=== PATIENT | male | born 1965 | race African-American/Black ===

== ENCOUNTER 2017-05-07 22:55 | Emergency (ER) ==
[2017-05-07 22:55] VITALS: BMI 25.7
--- NOTE | 2017-05-07 23:05 | ED.PDOC ---
General ED Provider: Dr. AL BARRERA Chief Complaint: Fall Stated Complaint: patient fell and ijured head and rt hand. He is brought by Police. Time Seen by Physician: 23:04 Nursing and Triage Documentation Reviewed and Agree: Yes Reviewed sepsis parameters & appropriate labs ordered?: No Sepsis Protocol: For patient's 13 years and over: Temp is 96.8 and below OR 101 and greater Pulse >90 BPM Resp >20/minute Acutely Altered Mental Status Are patient's symptoms suggestive of a new infection, such as: -Pneumonia -Skin, Soft Tissue -Endocarditis -UTI -Bone, Joint Infection -Implantable Device -Acute Abdominal Infection -Wound Infection -Meningitis -Blood Stream Catheter Infection -Unknown Past Medical History - Past Medical History Endocrine: Reports: Unknown Cardiovascular: Reports: Unknown Respiratory: Reports: Unknown Hematological: Reports: Unknown Gastrointestinal: Reports: Unknown Genitourinary: Reports: Unknown Neuro/Psych: Reports: Unknown Musculoskeletal: Reports: Unknown Cancer: Reports: Unknown - Surgical History General Surgical History: Reports: Unknown - Family History Family History: Reports: Unknown - Social History Smoking Status: Current every day smoker, Heavy tobacco smoker Hx Substance Use: Yes (COCAINE IN PAST) Alcohol Screening: Occasionally Course - Course Orders, Labs, Meds: Orders Category Date Time Status CT HEAD W/O CONTRAST Stat RADS 05/07/17 22:57 Ordered HAND, RIGHT 3 VIEWS Stat RADS 05/07/17 22:57 Ordered Departure - Departure Allergies/Adverse Reactions: Allergies No Known Drug Intolerances Adverse Reaction (Verified 09/04/15 00:29) Home Medications: Ambulatory Orders 1 [No Reported Medications] 09/04/15
[2017-05-07 23:07] VITALS: BP 131/84; TEMP 97.4
--- NOTE | 2017-05-07 23:08 | ED.PDOC ---
General ED Provider: Dr. AL BARRERA Chief Complaint: Fall Stated Complaint: Patient is brought by Police, he fell and injured the head, and right hand. Time Seen by Physician: 23:06 Nursing and Triage Documentation Reviewed and Agree: Yes Reviewed sepsis parameters & appropriate labs ordered?: No System Inflammatory Response Syndrome: Not Applicable Sepsis Protocol: For patient's 13 years and over: Temp is 96.8 and below OR 101 and greater Pulse >90 BPM Resp >20/minute Acutely Altered Mental Status Are patient's symptoms suggestive of a new infection, such as: -Pneumonia -Skin, Soft Tissue -Endocarditis -UTI -Bone, Joint Infection -Implantable Device -Acute Abdominal Infection -Wound Infection -Meningitis -Blood Stream Catheter Infection -Unknown Trauma/Injury Complaint Exam - Head Injury Complaint/Exam Location of Pain: Reports: Right, Scalp Mechanism of Injury: Reports: Trauma Symptoms Are: Still present Initial Severity: Mild Current Severity: Mild Character: Reports: Dull Aggravating: Reports: None Alleviating: Reports: None Associated Signs and Symptoms: Denies: Confusion, Memory loss, Seizure, Epistaxis, Dental malocclusion, Neck pain, Nausea, Vomiting Loss of Consciousness: None SDH Risk Factors: Present: None Cervical Spine Injury Risk Factors: Present: None Related Surgical History: Reports: None Focal Weakness: Present: None Focal Sensory Loss: Present: None Gait: Normal Gag Reflex Present: Yes Finger to Nose: Normal Babinski Sign: Negative Right, Negative Left Differential Diagnoses: Trauma Review of Systems - Review Of Systems Constitutional: Reports: No symptoms Eyes: Reports: No symptoms Ears, Nose, Mouth, Throat: Reports: No symptoms Respiratory: Reports: No symptoms Cardiac: Reports: No symptoms GI: Reports: No symptoms : Reports: No symptoms Musculoskeletal: Reports: Joint pain Skin: Reports: No symptoms Neurological: Reports: Headache Endocrine: Reports: No symptoms Hematologic/Lymphatic: Reports: No symptoms All Other Systems: Reviewed and Negative Past Medical History - Past Medical History Previously Healthy: Yes Endocrine: Reports: Unknown Cardiovascular: Reports: Unknown Respiratory: Reports: Unknown Hematological: Reports: Unknown Gastrointestinal: Reports: Unknown Genitourinary: Reports: Unknown Neuro/Psych: Reports: Unknown Musculoskeletal: Reports: Unknown Cancer: Reports: Unknown - Surgical History General Surgical History: Reports: Unknown - Family History Family History: Reports: Unknown - Social History Smoking Status: Current every day smoker, Heavy tobacco smoker Smoking Cessation Counseling Time: > 10 min Hx Substance Use: Yes (COCAINE IN PAST) Alcohol Screening: Occasionally Physical Exam - Physical Exam Appearance: Ill-appearing Eyes: EOMI, Conjunctiva clear ENT: Ears normal, Nose normal, Oropharynx normal Respiratory: Airway patent, Breath sounds clear, Breath sounds equal, Respirations nonlabored Cardiovascular: RRR, Pulses normal, No rub, No murmur GI/: Soft, Nontender, No masses, Bowel sounds normal, No Organomegaly Musculoskeletal: Normal strength, ROM intact, No edema, No calf tenderness Skin: Warm, Dry, Normal color Neurological: Sensation intact (rt side scalp, palpable mass, non tender, soft. 3 cm), Motor intact, Reflexes intact, Cranial nerves intact, Alert, Oriented Psychiatric: Affect appropriate, Mood appropriate Interpretation - Radiology Interpretation Radiology Interpretation By: Radiologist Radiology Results: Positive (scalp hematoma) Exam Interpreted: CT Scan Critical Care Note - Critical Care Note Total Time (mins): 15 Course - Course Orders, Labs, Meds: Orders Category Date Time Status CT HEAD W/O CONTRAST Stat RADS 05/07/17 22:57 Completed HAND, RIGHT 3 VIEWS Stat RADS 05/07/17 22:57 Completed Vital Signs: Temp Pulse Resp BP Pulse Ox 05/07/17 22:56 97.4 F L 84 18 131/84 98 Departure - Departure Time of Disposition: 23:58 Disposition: HOME SELF-CARE Discharge Problem: Scalp hematoma Qualifiers: Encounter type: initial encounter Qualified Code(s): S00.03XA - Contusion of scalp, initial encounter Instructions: Hematoma (ED) Condition: Stable Pt referred to PMD for follow-up: No IPMP verified?: No Additional Instructions: Patient is stable, and released back to Police. Allergies/Adverse Reactions: Allergies No Known Drug Intolerances Adverse Reaction (Verified 05/07/17 23:07) Home Medications: Ambulatory Orders 1 [No Reported Medications] 09/04/15 Disposition Discussed With: Patient
--- NOTE | 2017-05-07 23:35 | CT ---
EXAM: CT scan brain without contrast HISTORY: Fall COMPARISON: CT scan brain 09/04/2015 FINDINGS: Contiguous axial images obtained from the skull base to the convexities without contrast u tilizing 5-mm collimation. The ventricles and CSF spaces are prominent compared with age appropriate atrophy. There is mild periventricular hypodensity noted compatible with chronic microvascular dise ase. There is a moderate sized right frontal scalp hematoma without acute findings.. Visualized par anasal sinuses and mastoid air cells are clear calvarium is intact. Moderately large right frontal s calp hematoma. IMPRESSION: Moderately large right frontal scalp hematoma. No acute findings.
--- NOTE | 2017-05-07 23:40 | DI ---
EXAM: Three views of the right hand. HISTORY: Fall. FINDINGS: Comparison made with three-view right hand of 09/04/2015. There is a nondisplaced fracture through the head of the right fifth metacarpal, age indeterminate. There is an old healed fracture of the distal right fifth metacarpal. The joint spaces are maintained. No soft tissue abnormality. Impression: Nondisplaced fracture through the head of the right fifth metacarpal, age indeterminate. Old healed fracture of the distal right fifth metacarpal.
== END 2017-05-08 00:05 | disposition home or self-care (01) ==
LOC: ED 22:55
DX: S00.03XA Contusion of scalp, initial encounter (principal); S69.91XA Unspecified injury of right wrist, hand and finger(s), initial encounter; W19.XXXA Unspecified fall, initial encounter; F17.210 Nicotine dependence, cigarettes, uncomplicated
CPT/HCPCS: 99282

== ENCOUNTER 2017-09-14 12:52 | Emergency (ER) | payer OTHER ==
[2017-09-14 12:57] VITALS: BP 144/88; TEMP 98.5; BMI 26.9
[2017-09-14] MEDS ORDERED: TORADOL IM STA (13:16)
--- NOTE | 2017-09-14 13:23 | ED.PDOC ---
General ED Provider: Dr. YAAHIRA PAUL Chief Complaint: Fall Stated Complaint: fall back and neck pain Time Seen by Physician: 13:00 Mode of Arrival: Walk-In Information Source: Patient Exam Limitations: No limitations Nursing and Triage Documentation Reviewed and Agree: Yes Reviewed sepsis parameters & appropriate labs ordered?: Yes (police present at all times ) System Inflammatory Response Syndrome: Not Applicable Sepsis Protocol: For patient's 13 years and over: Temp is 96.8 and below OR 101 and greater Pulse >90 BPM Resp >20/minute Acutely Altered Mental Status Are patient's symptoms suggestive of a new infection, such as: -Pneumonia -Skin, Soft Tissue -Endocarditis -UTI -Bone, Joint Infection -Implantable Device -Acute Abdominal Infection -Wound Infection -Meningitis -Blood Stream Catheter Infection -Unknown Musculoskeletal Complaint Exam - Neck Pain Complaint/Exam Mechanism of Injury: Reports: Trauma Onset/Duration: fall today, low back pain withe xtension to left posterior leg Symptoms Are: Still present Timing: Constant Initial Severity: Moderate Current Severity: Mild Location: Reports: Discrete Aggravating: Reports: Position, Movement Alleviating: Reports: Position Associated Signs and Symptoms: Denies: Swelling, Redness, Bruising, Fever, Nuchal rigidity, Weakness, Headache, Paresthesia Meningitis Risk Factors: Reports: None Cervical Spine Injury Risk Factors: Denies: Post-Midline CS tender, Evidence of intoxication, Altered LOC, Focal neuro deficit, Distracting injuries Related Surgical History: Reports: None Carotid Bruit Present: No Pain on Passive Flexion: No Positive Kernig's Sign: No ROM Limited In: Present: Side bending Tenderness: Present: Paraspinal Focal Weakness: Present: None Focal Sensory Loss: Reports: None Nexus Low Risk Criteria: No evidence of intoxicat., No Altered LOC, No focal neuro deficit, No distracting injuries Differential Diagnoses: Arthritis, Sprain, Strain Review of Systems - Review Of Systems Constitutional: Reports: No symptoms Eyes: Reports: No symptoms Ears, Nose, Mouth, Throat: Reports: No symptoms Respiratory: Reports: No symptoms Cardiac: Reports: No symptoms GI: Reports: No symptoms : Reports: No symptoms Musculoskeletal: Reports: Back pain (t and l spine) Skin: Reports: No symptoms Neurological: Reports: No symptoms Endocrine: Reports: No symptoms Hematologic/Lymphatic: Reports: No symptoms All Other Systems: Reviewed and Negative Past Medical History - Past Medical History Previously Healthy: Yes Endocrine: Reports: Unknown Cardiovascular: Reports: Unknown Respiratory: Reports: Unknown Hematological: Reports: Unknown Gastrointestinal: Reports: Unknown Genitourinary: Reports: Unknown Neuro/Psych: Reports: Unknown Musculoskeletal: Reports: Unknown Cancer: Reports: Unknown - Surgical History General Surgical History: Reports: Unknown - Family History Family History: Reports: Unknown - Social History Smoking Status: Current every day smoker, Heavy tobacco smoker Hx Substance Use: Yes (COCAINE IN PAST) Alcohol Screening: Occasionally Physical Exam - Physical Exam Appearance: Well-appearing, No pain distress, Well-nourished Eyes: ALEXIA, EOMI, Conjunctiva clear ENT: Ears normal, Nose normal, Oropharynx normal Respiratory: Airway patent, Breath sounds clear, Breath sounds equal, Respirations nonlabored Cardiovascular: RRR, Pulses normal, No rub, No murmur GI/: Soft, Nontender, No masses, Bowel sounds normal, No Organomegaly Musculoskeletal: Normal strength, ROM intact, No edema, No calf tenderness Skin: Warm, Dry, Normal color Neurological: Sensation intact, Motor intact, Reflexes intact, Cranial nerves intact, Alert, Oriented Psychiatric: Affect appropriate, Mood appropriate Interpretation - Radiology Interpretation Radiology Interpretation By: Radiologist Radiology Results: No acute changes Critical Care Note - Critical Care Note Total Time (mins): 0 Course - Course Orders, Labs, Meds: Orders Category Date Time Status Ketorolac Tromethamine [Toradol] MEDS 09/14/17 13:16 Discontinued 60 mg IM ONCE STA CT CERVICAL SPINE W/O CONTRAST Stat RADS 09/14/17 13:[address] LUMBAR SPINE W/O CONTRAST Stat RADS 09/14/17 13:[address] THORACIC SPINE W/O CONTRAST Stat RADS 09/14/17 13:20 Completed HAND, RIGHT 3 VIEWS Stat RADS 09/14/17 13:22 Completed Medications Discontinued Medications Generic Name Dose Route Start Last Admin Trade Name Freq PRN Reason Stop Dose Admin Ketorolac Tromethamine 60 mg 09/14/17 13:16 09/14/17 13:22 Toradol IM 09/14/17 13:17 60 mg ONCE STA Administration Vital Signs: Temp Pulse Resp BP Pulse Ox 09/14/17 12:53 98.5 F 71 18 144/88 H 97 Departure - Departure Time of Disposition: 15:01 (mri discussed reports given to the pt ) Disposition: HOME SELF-CARE Discharge Problem: Neck pain Low back pain Qualifiers: Chronicity: acute Back pain laterality: unspecified Sciatica presence: with sciatica Sciatica laterality: sciatica of left side Qualified Code(s): M54.42 - Lumbago with sciatica, left side Instructions: Acute Low Back Pain (ED), Sciatica (ED), Lumbar Radiculopathy (ED ) Condition: Good Pt referred to PMD for follow-up: Yes IPMP verified?: No Allergies/Adverse Reactions: Allergies No Known Drug Intolerances Adverse Reaction (Verified 09/14/17 12:57) Home Medications: Ambulatory Orders 1 [No Reported Medications] 09/04/15
--- NOTE | 2017-09-14 14:19 | CT ---
Exam: CT cervical spine without intravenous contrast. Comparison: 09/04/1999. Reason for exam: Injury. FINDINGS: No acute fracture or listhesis in the cervical spine. The cervical lordotic curve is well maintained. The dens appears intact. Degenerative disease is seen with osteophyte formation. The prevertebral soft tissues are within normal limits. Impression: No acute fracture or listhesis in the cervical spine with moderate degenerative disease.
--- NOTE | 2017-09-14 14:27 | CT ---
Exam: CT lumbar spine without intravenous contrast. Comparison: 09/04/2015. Reason for exam: Injury. FINDINGS: No acute fracture or listhesis. The vertebral body heights are well maintained. There is a normal appearing lumbar lordotic curve. Degenerative disease is seen with osteophyte formation an d facet hypertrophy with disc disease. T12 - L1: No significant central canal or foraminal narrowing. L1-L2: No significant central canal or foraminal narrowing. L2-L3: Broad-based disc bulge with facet hypertrophy resulting in moderate central canal and foramin al narrowing. L3-L4: Broad-based disc bulge with impression on the thecal sac and facet hypertrophy resulting in m oderate to marked central canal and foraminal narrowing. L4-L5: Broad-based disc bulge with facet hypertrophy resulting in moderate to marked central canal a nd foraminal narrowing. L5-S1: Small broad-based disc bulge with impression on the thecal sac resulting in mild central canal and foraminal narrowing. Impression: 1. No acute fracture or listhesis in the lumbar spine. 2. Multilevel degenerative disease with central canal and foraminal narrowing as described. If clin ical concern exists for radiculopathy or myelopathy, MRI may be performed for further characterizatio n.
--- NOTE | 2017-09-14 14:29 | CT ---
EXAM: CT thoracic spine. HISTORY: Injury, pain. TECHNIQUE: CT thoracic spine without contrast. Multiplanar images provided. FINDINGS: Comparison may be made to 09/04/2015. No acute fracture or subluxation is identified. Vertebral body height is maintained throughout. Fac et joints are covered. Scattered osteophytic spurring. No evidence of traumatic central canal steno sis or paraspinal hematoma. Mild left lung base atelectasis. IMPRESSION: No acute fracture or subluxation identified.
--- NOTE | 2017-09-14 14:29 | DI ---
Exam: Three views of the right hand. Comparison: 05/07/2017. Reason for exam: Injury. FINDINGS: No acute fracture is seen in the right hand. Degenerative disease is seen in the right first metacarpal phalangeal joint space. Degenerative tyler ges are seen in the right fifth metacarpal. No unexplained calcific soft tissue density or radiopaque retained foreign body. Mild degenerative d isease is seen in the distal interphalangeal and interphalangeal joint spaces with joint space narrow ing. Osseous changes are seen consistent with a previous fracture of the right fifth metacarpal. Impression: 1. No acute fracture is seen in the right hand. 2. Mild to moderate degenerative disease
== END 2017-09-14 15:23 | disposition home or self-care (01) ==
LOC: ED 12:52
DX: M54.42 Lumbago with sciatica, left side (principal); M54.2 Cervicalgia; W19.XXXA Unspecified fall, initial encounter; F17.210 Nicotine dependence, cigarettes, uncomplicated
CPT/HCPCS: 96372; 99283

== ENCOUNTER 2017-10-27 16:35 | Outpatient (CLI) | END 2017-10-27 16:36 | disposition home or self-care (01) | LOC: FCC-LAB 16:35 | PROVIDERS: ATTEND Family Medicine | DX: N52.9 Male erectile dysfunction, unspecified (principal); M54.42 Lumbago with sciatica, left side; N50.819 Testicular pain, unspecified; M51.36 Other intervertebral disc degeneration, lumbar region | CPT/HCPCS: 36415; 80053; 85025 ==

== ENCOUNTER 2018-09-03 20:20 | Emergency (ER) ==
[2018-09-03 20:27] VITALS: BP 116/76; TEMP 99; BMI 28.5
[2018-09-03] MEDS ORDERED: LIDOCAINE HCL 1% SDV SUBCUT STA (20:31)
[2018-09-03] MEDS ORDERED: TENIVAC IM ONE (20:31)
--- NOTE | 2018-09-03 20:43 | ED.PDOC ---
General ED Provider: Dr. PATRICIO MOJICA-ER Chief Complaint: Fall Stated Complaint: i slipped and fell and hit my head---no loc Time Seen by Physician: 20:25 Mode of Arrival: Walk-In Information Source: Patient, Police Exam Limitations: No limitations Nursing and Triage Documentation Reviewed and Agree: Yes Does patient meet sepsis criteria?: No System Inflammatory Response Syndrome: Not Applicable Sepsis Protocol: For patient's 13 years and over: Temp is 96.8 and below OR 101 and greater Pulse >90 BPM Resp >20/minute Acutely Altered Mental Status Are patient's symptoms suggestive of a new infection, such as: -Pneumonia -Skin, Soft Tissue -Endocarditis -UTI -Bone, Joint Infection -Implantable Device -Acute Abdominal Infection -Wound Infection -Meningitis -Blood Stream Catheter Infection -Unknown Skin Complaint Exam - Laceration/Head/Facial Complaint/Exam Location of Injury: Scalp Mechanism of Injury: Laceration Onset/Duration: 45 min Symptoms Are: Still present Initial Severity: Mild Current Severity: Mild Aggravating: Movement Alleviating: Compression Associated Signs and Symptoms: Denies: Fever, Chills, Erythema, Numbness, Tingling Differential Diagnoses: Laceration Review of Systems - Review Of Systems Constitutional: Reports: No symptoms Eyes: Reports: No symptoms Ears, Nose, Mouth, Throat: Reports: No symptoms Respiratory: Reports: No symptoms Cardiac: Reports: No symptoms GI: Reports: No symptoms : Reports: No symptoms Musculoskeletal: Reports: No symptoms Skin: Reports: No symptoms Neurological: Reports: No symptoms Endocrine: Reports: No symptoms Hematologic/Lymphatic: Reports: No symptoms All Other Systems: Reviewed and Negative Past Medical History - Past Medical History Previously Healthy: Yes Endocrine: Reports: Unknown Cardiovascular: Reports: Unknown Respiratory: Reports: Unknown Hematological: Reports: Unknown Gastrointestinal: Reports: Unknown Genitourinary: Reports: Unknown Neuro/Psych: Reports: Unknown Musculoskeletal: Reports: Unknown Cancer: Reports: Unknown - Surgical History General Surgical History: Reports: Unknown - Family History Family History: Reports: Unknown - Social History Smoking Status: Current every day smoker, Heavy tobacco smoker Hx Substance Use: Yes (COCAINE IN PAST) Alcohol Screening: Occasionally - Immunizations Tetanus Shot up to Date: No (unknow) Physical Exam - Physical Exam Appearance: Well-appearing, No pain distress, Well-nourished Pain Distress: Mild Eyes: ALEXIA, EOMI, Conjunctiva clear ENT: Ears normal, Nose normal, Oropharynx normal Neck: Supple Respiratory: Airway patent, Breath sounds clear, Breath sounds equal, Respirations nonlabored Cardiovascular: RRR, Pulses normal, No rub, No murmur GI/: Soft Musculoskeletal: Normal strength, ROM intact, No edema, No calf tenderness Skin: Warm, Dry, Normal color Neurological: Sensation intact, Motor intact, Reflexes intact, Cranial nerves intact, Alert, Oriented Psychiatric: Affect appropriate, Mood appropriate Procedures - Laceration/Wound Repair No standard instances Wound Description: Linear Wound Length (cm): 4cm scalp Wound Explored: Clean Wound Irrigated: Yes Wound Prep: Hibiclens Anesthesia: Lidocaine Wound Repaired With: [place] Number of [place]: 6 Layer Closure?: No Sterile Dressing Applied?: Yes Splint Applied?: No Sling Applied?: No Critical Care Note - Critical Care Note Total Time (mins): 0 Course - Course Orders, Labs, Meds: Orders Category Date Time Status Lidocaine HCl/Pf [Lidocaine HCl 1% Sdv] MEDS 09/03/18 20:31 Discontinued 5 ml SUBCUT ONCE STA Tetanus and Diphtheria Tox/Pf [Tenivac] MEDS 09/03/18 20:31 Discontinued 0.5 ml IM .ONCE ONE Medications Discontinued Medications Generic Name Dose Route Start Last Admin Trade Name Freq PRN Reason Stop Dose Admin Lidocaine HCl 5 ml 09/03/18 20:31 Lidocaine Hcl 1% Sdv SUBCUT 09/03/18 20:32 ONCE STA Tetanus/Diphtheria Toxoids Adsorbed 0.5 ml 09/03/18 20:31 Tenivac IM 09/03/18 20:32 .ONCE ONE Vital Signs: Temp Pulse Resp BP Pulse Ox 09/03/18 20:22 99 F 77 16 116/76 95 Departure - Departure Time of Disposition: 20:42 Disposition: HOME SELF-CARE Discharge Problem: Scalp laceration Qualifiers: Encounter type: initial encounter Qualified Code(s): S01.01XA - Laceration without foreign body of scalp, initial encounter Instructions: Laceration (ED), Staple Care (ED) Condition: Good Pt referred to PMD for follow-up: Yes IPMP verified?: No Additional Instructions: keep clean and dry---camilo out in 7 days0----return if any signs of infection Allergies/Adverse Reactions: Allergies No Known Drug Intolerances Adverse Reaction (Verified 09/14/17 12:57) Home Medications: Ambulatory Orders 1 [No Reported Medications] 09/04/15 Disposition Discussed With: Patient, Other (isac)
== END 2018-09-03 20:56 | disposition home or self-care (01) ==
LOC: ED 20:20
DX: S01.01XA Laceration without foreign body of scalp, initial encounter (principal); W01.0XXA Fall on same level from slipping, tripping and stumbling without subsequent striking against object, initial encounter; F17.210 Nicotine dependence, cigarettes, uncomplicated
CPT/HCPCS: 90471; 90714; 99283